=== PATIENT | male | born 1945 | race Caucasian/White ===

== ENCOUNTER 2018-08-30 10:30 | Inpatient (IN) | payer MEDICARE, BC ==
[2018-08-26 14:16] LABS: BASOPHILS % (AUTO) 0.3 % (0-1); EOSINOPHILS # (AUTO) 0.6 X10'3 (0-0.9); EOSINOPHILS % (AUTO) 6.7 % (0-6); LYMPHOCYTES # (AUTO) 1.5 X10'3 (1.1-4.8); LYMPHOCYTES % (AUTO) 18.1 % (21-51); MEAN CORPUSCULAR HEMOGLOBIN 31.8 PG (27.0-31.0); MEAN CORPUSCULAR VOLUME 96.4 FL (78-98); MEAN PLATELET VOLUME 7.2 FL (7.4-10.4); MONOCYTES # (AUTO) 0.9 X10'3 (0-0.9); MONOCYTES % (AUTO) 10.8 % (2-12); NEUTROPHILS # (AUTO) 5.4 X10'3 (1.8-7.7); NEUTROPHILS % (AUTO) 64.1 % (42-75); PRE OP HEMATOCRIT 41.4 % (42.0-52.0); PRE OP HEMOGLOBIN 13.6 g/dL (14.0-17.9); PRE OP PLATELET COUNT 197 X10'3 (140-440); RED BLOOD COUNT 4.29 X10'6 (4.70-6.10); RED CELL DISTRIBUTION WIDTH 14.4 % (11.5-14.5)
[2018-08-26 14:33] LABS: ALBUMIN 3.9 G/DL (3.4-5.0); ALBUMIN/GLOBULIN RATIO 1.1 (1.1-1.5); ALKALINE PHOSPHATASE 198 IU/L (46-116); BLOOD UREA NITROGEN 25 MG/DL (7-18); BUN/CREATININE RATIO 24.8 (5.4-32.0); CALCIUM 9.1 MG/DL (8.5-10.1); CHLORIDE 101 MMOL/L (99-107); CREATININE 1.01 MG/DL (0.60-1.10); PRE OP ALT 26 U/L (30-65); PRE OP ANION GAP 8 (8-16); PRE OP AST 22 U/L (10-37); PRE OP BILIRUB, TOTAL 0.3 MG/DL (0.0-1.0); PRE OP GLUCOSE 89 MG/DL (70-104); PRE OP POTASSIUM 4.5 MMOL/L (3.4-5.1); PRE OP SODIUM 138 MMOL/L (135-145); TOTAL CARBON DIOXIDE 28.6 MMOL/L (24-32); TOTAL PROTEIN 7.4 G/DL (6.4-8.2); eGFR 73 ML/MIN
[~2018-08-30] VITALS: Ht 175.3 cm; Wt 71.1 kg
[~2018-08-30 10:30] MED LIST: ASPI81TA46 PO; MULT1TAB74 PO; OMEP20TA5 PO; PHEN100C4 PO; TAMS0.4C32 PO
[2018-09-02] VITALS (18 sets, daily range): BP systolic 91–149; BP diastolic 39–92
[2018-09-02] MEDS ORDERED: ringers solution, lacted 1,000 ML IV SCH ×2 (05:00→13:13)
[2018-09-02] MEDS ORDERED: NORMAL SALINE IV ONE ×2 (05:30→11:40)
[2018-09-02] MEDS ORDERED: TRANEXAMIC ACID IV ONE ×2 (05:30→11:40)
[2018-09-02] MEDS ORDERED: famotidine 20mg tablet PO ONE (05:30)
[2018-09-02] MEDS ORDERED: VANCOMYCIN INJ 1000 MG in NORMAL SALINE 250ml IV.SOLN IV ONE (05:30)
[2018-09-02] MEDS ORDERED: cefazolin/dext.iso 2gm/100 ML IV ONE (05:30)
[2018-09-02] MEDS ORDERED: ketorolac trometh. 30mg/ml inj. ONE (10:28)
[2018-09-02] MEDS ORDERED: ROPIVAcaine 0.5% (5mg/ml) 30ml vial ONE ×2 (10:28→11:09)
[2018-09-02] MEDS ORDERED: vancomycin 1,000mg inj ONE (10:29)
[2018-09-02] MEDS ORDERED: fentaNYL/PF 50MCG/1 ML 2ML syringe ONE ×2 (11:53→14:00)
[2018-09-02] MEDS ORDERED: midazolam 2 mg/2 ml injection ONE (11:54)
[2018-09-02] MEDS ORDERED: ePHEDrine 50MG/ML INJ. ONE (12:24)
[2018-09-02] MEDS ORDERED: sevoflurane 250ml liquid IH ONE (12:24)
[2018-09-02] MEDS ORDERED: ondansetron/PF 4mg/2ml inj ONE (12:55)
[2018-09-02] MEDS ORDERED: LIDOcaine 2% (20mg/ml) 5ml vial ONE (12:55)
[2018-09-02] MEDS ORDERED: dexamethasone sod phosphate 4mg/ml inj. ONE (12:55)
[2018-09-02] MEDS ORDERED: propofol inj 20 ML IV ONE (12:55)
[2018-09-02] MEDS ORDERED: ondansetron/PF 4mg/2ml inj IV PRN ×2 (13:15→14:55)
[2018-09-02] MEDS ORDERED: fentaNYL/PF 50MCG/1 ML 2ML syringe IV PRN ×2 (13:15)
[2018-09-02] MEDS ORDERED: hydrALAZINE 20mg/ml inj. IV PRN (13:15)
[2018-09-02] MEDS ORDERED: enalaprilat dihydrate 2.5mg/2ml vial IV PRN (13:15)
[2018-09-02] MEDS ORDERED: morphine 4 MG/ML inj SYRINge IV PRN ×2 (13:15)
[2018-09-02] MEDS ORDERED: potassium cl 20mEq in 1/2 NS 1,000 ML IV SCH (14:51)
[2018-09-02] MEDS ORDERED: diphenhydrAMINE 25mg capsule PO PRN ×2 (14:55)
[2018-09-02] MEDS ORDERED: bisacodyl 10mg suppository rectal RC PRN (14:55)
[2018-09-02] MEDS ORDERED: HYDROmorphone 1 mg/ml syringe IV PRN ×2 (14:55)
[2018-09-02] MEDS ORDERED: oxyCODONE IR 5mg (immed. release) tablet PO PRN ×2 (14:55)
[2018-09-02] MEDS ORDERED: magnesium hydroxide 30ml (MOM) UD suspension PO PRN (14:55)
[2018-09-02] MEDS ORDERED: acetaminophen 325mg tablet PO PRN (14:55)
[2018-09-02] MEDS ORDERED: ceFAZolin 1GM/D5W- ADD-VANTAGE 50 ML IV SCH (16:00)
[2018-09-02] MEDS ORDERED: tranexamic acid inj. 710 MG in normal saline 100ml IV soln 100 ML IV ONE (18:08)
[2018-09-02] MEDS: ketorolac tromethamine 15mg/ml inj. IV SCH (19:50)
[2018-09-02] MEDS: acetaminophen 325mg tablet PO SCH (19:50)
[2018-09-02] MEDS ORDERED: vancomycin/NS 1 GM ADD-VANTAGE 250 ML IV SCH (20:00)
[2018-09-02] MEDS: gabapentin 300mg capsule PO SCH (20:02)
[2018-09-02] MEDS ORDERED: tamsulosin 0.4mg capsule PO SCH (21:00)
[2018-09-02] MEDS ORDERED: phenytoin sod ER 100mg capsule PO SCH (21:00)
[2018-09-02] MEDS ORDERED: sennosides 8.6mg tablet PO SCH (21:00)
[2018-09-03] MEDS ORDERED: ceFAZolin/D5W- 1GM premix 50 ML IV SCH (00:26)
[2018-09-03 02:00] VITALS: BP 121/69
[2018-09-03] MEDS: ketorolac tromethamine 15mg/ml inj. IV SCH ×2 (02:01→08:21)
[2018-09-03] MEDS: acetaminophen 325mg tablet PO SCH ×2 (02:01→08:21)
[2018-09-03 06:04] LABS: BASOPHILS % (AUTO) 0.2 % (0-1); EOSINOPHILS % (AUTO) 0.3 % (0-6); HEMATOCRIT 31.3 % (42.0-52.0); HEMOGLOBIN 10.5 g/dl (14.0-17.9); LYMPHOCYTES # (AUTO) 1.5 X10'3 (1.1-4.8); LYMPHOCYTES % (AUTO) 15.8 % (21-51); MEAN CORPUSCULAR HEMOGLOBIN 32.2 PG (27.0-31.0); MEAN CORPUSCULAR HGB CONC 33.7 % (33.0-36.5); MEAN CORPUSCULAR VOLUME 95.8 FL (78-98); MEAN PLATELET VOLUME 7.6 FL (7.4-10.4); MONOCYTES # (AUTO) 1.1 X10'3 (0-0.9); NEUTROPHILS # (AUTO) 7.1 X10'3 (1.8-7.7); NEUTROPHILS % (AUTO) 72.7 % (42-75); PLATELET COUNT 152 X10'3 (140-440); RED BLOOD COUNT 3.27 X10'6 (4.70-6.10); WHITE BLOOD COUNT 9.7 X10'3 (4.5-11.0)
[2018-09-03 06:09] LABS: ANION GAP 7 (8-16); CHLORIDE 105 MMOL/L (99-107); POTASSIUM 4.1 MMOL/L (3.5-5.1); SODIUM 138 MMOL/L (135-145); TOTAL CARBON DIOXIDE 26.1 MMOL/L (24-32)
[2018-09-03] MEDS ORDERED: pantoprazole 40mg Tablet.DR PO SCH (07:30)
[2018-09-03] MEDS ORDERED: multivitamins, therapeutics tablet PO SCH (08:00)
[2018-09-03] MEDS ORDERED: aspirin 81mg tablet.DR PO SCH (08:00)
[2018-09-03] MEDS: gabapentin 300mg capsule PO SCH (08:21)
[2018-09-03] MEDS ORDERED: aspirin 325mg tablet PO SCH (08:30)
[2018-09-03 08:47] VITALS: BP 109/49
[2018-09-03] MEDS ORDERED: celeCOXIB 100mg capsule PO SCH (20:00)
== END 2018-09-03 10:35 | disposition home or self-care (01) | DRG 483 ==
LOC: PAS IN 09-02 08:44 → EDSTATUS 09-02 11:45 → ORTHO 4S 09-02 13:50 → EDSTATUS 09-04 13:15
PROVIDERS: ADMIT Orthopaedic Surgery; ATTEND Orthopaedic Surgery
PROC: 0LS40ZZ Reposition Left Upper Arm Tendon, Open Approach (ICD-10-PCS; 2018-09-02)
PROC: 3E0T3BZ Introduction of Anesthetic Agent into Peripheral Nerves and Plexi, Percutaneous Approach (ICD-10-PCS; 2018-09-02)
PROC: 0RRK00Z Replacement of Left Shoulder Joint with Reverse Ball and Socket Synthetic Substitute, Open Approach (ICD-10-PCS; principal; 2018-09-02 12:24)
DX: M19.012 Primary osteoarthritis, left shoulder (principal); D62 Acute posthemorrhagic anemia; K21.9 Gastro-esophageal reflux disease without esophagitis; M65.811 Other synovitis and tenosynovitis, right shoulder; M75.122 Complete rotator cuff tear or rupture of left shoulder, not specified as traumatic; M75.22 Bicipital tendinitis, left shoulder; N40.0 Benign prostatic hyperplasia without lower urinary tract symptoms; Z79.899 Other long term (current) drug therapy; Z79.82 Long term (current) use of aspirin
CPT/HCPCS: 36415; 80051; 80053; 85025; 87070; 97110; 97116; 97161; A4565; A7000; G0378; J0690; J1100; J1885; J2001; J2250; J2405; J2704; J2795; J3010; J3370; J7030; J7040; J7120